=== PATIENT | female | born 1990 | race Caucasian/White ===

== ENCOUNTER → 2016-08-04 | Outpatient (CLI) | payer OTHER ==
[~2016-08-04] MED LIST: ADIPEX37.5 MG PO; BIO-TN500 MCG PO; FIORICET 325 MG1 TAB PO; MAXALT5 MG PO; MIGRAINE MED; MOTRIN800 MG PO; MULTIPLE VITAMI1 CAP PO; NKHM; NORFLEX100 MG PO; NYSTATIN100000 U/M PO; PREDNISONE20 M1 PO; PRISTIQ50 MG PO; TOPAMAX50 MG PO; VIBRAMYCIN100 MG PO; VICODIN ES 7501 TAB PO; ZOFRAN ODT4 MG SL; Zofran4 MG PO
--- NOTE | ~2016-08-04 | PF ---
[place], [place] PULMONARY FUNCTION TEST NAME: ELIAS RODRIGUEZ UNIT #: [id number] ROOM: DOCTOR: GENESIS BOYER MD,ROMAIN BIRTHDATE: [birth year] DOS: 08/04/2016 PULMONARY FUNCTION TEST The testing of the patient on completed 08/04/2016. HISTORY: The patient recorded 25 years old outpatient female, height of 63 inches, weight of 170 pounds without any past history of tobacco use. The patient described a rash on the skin as well as a possibility of myositis. The patient reported symptoms of dyspnea with exertion with rare wheezing. SPIROMETRY: The FVC recorded 3.44 liters as 94% predicted value. The FEV1 was 3.43 liters at 109% predicted value. The FEV1 and the FVC for the patient both noted normal. The ratio of FEV1/FVC was recorded 100%. Partial improvement of the patient was noted in the FVC as 11%, which does ____ the significant improvement criteria of ATS. The lung volumes, thoracic gas volume recorded 90%, residual volume 104% and total lung capacity of 107%. The lung volumes were noted as normal. The lung diffusion recorded as 111% that was normal. The patient's airway resistance and passive conductance were noted normal. IMPRESSION: The patient with essentially noted normal pulmonary function test for this patient's current assessment. ROMAIN HURTADO MD CM:PFREPORT:PULMONARY FUNCTION TEST [id number] ROMAIN BOYER MD
== END | disposition home or self-care (01) ==
LOC: CP 12:41
DX: R06.02 Shortness of breath (principal); R21 Rash and other nonspecific skin eruption; B37.0 Candidal stomatitis

== ENCOUNTER → 2018-01-23 | Outpatient (CLI) | payer OTHER ==
--- NOTE | ~2018-01-23 | EKG ---
[place], [place] ELECTROCARDIOGRAM REPORT NAME: ELIAS RODRIGUEZ UNIT #: [id number] ROOM: DOCTOR: EPIPHANY DRAFT REPORT BIRTHDATE: [birth year] [facility] Test Date: 2018-01-23 Test Time: 16:21:56 Pat Name: ELIAS RODRIGUEZ Department: Room: Gender: F Chief Nuclear Medicine Technologist: Pamela Brooks : 1990 Requested By: MUSA VEGA Order Number: [id number] Reading MD: Henry Martinez MD Measurements Intervals [place] Rate: 124 P: 72 ME: 148 QRS: 40 QRSD: 70 T: 34 QT: 317 QTc: 456 Interpretive Statements Sinus tachycardia LAE, consider biatrial enlargement No previous ECG available for comparison Electronically Signed On 01-25-2018 11:02:46 PDT by Henry Martinez MD CM:EKGRPT:ELECTROCARDIOGRAM REPORT 1621 [id number] MUSA VEGA EPIPHANY DRAFT REPORT MUSA VEGA
== END | disposition home or self-care (01) ==
LOC: CARD 16:09
DX: Z51.81 Encounter for therapeutic drug level monitoring (principal); R00.0 Tachycardia, unspecified; F90.9 Attention-deficit hyperactivity disorder, unspecified type; Z79.899 Other long term (current) drug therapy

== ENCOUNTER → 2020-08-03 | Outpatient (CLI) | payer OTHER ==
[2020-08-03 10:39] LABS: URINE AMPHETAMINES < 1000 (1000ng/ml); URINE BARBITURATES < 200 (200ng/ml); URINE BENZODIAZEPINES < 200 (200ng/ml); URINE CANNABINOIDS (THC) < 50 (50ng/ml); URINE COCAINE < 300 (300ng/ml); URINE METHADONE < 300 (300ng/ml); URINE OPIATES < 300 (300ng/ml)
[2020-08-03 10:48] LABS: URINE PHENCYCLIDINE < 25 (25ng/ml)
== END | disposition home or self-care (01) ==
LOC: LAB 09:41
PROVIDERS: ATTEND Registered Nurse Psychiatric/Mental Health
DX: F90.0 Attention-deficit hyperactivity disorder, predominantly inattentive type (principal)

== ENCOUNTER 2023-10-08 11:19 | Emergency (ER) | payer BC ==
[~2023-10-08] VITALS: Ht 157.4 cm; Wt 65.8 kg
[2023-10-08] MEDS ORDERED: ATOMOXETINE HCL40 MG PO (11:38)
[2023-10-08] MEDS ORDERED: DEXTROAMPH SACC10 M1 PO (11:38)
[2023-10-08] MEDS ORDERED: TOPAMAX50 MG PO (11:39)
[2023-10-08] MEDS ORDERED: MIXED AMPHETAMI30 MG PO (11:41)
[2023-10-08] MEDS ORDERED: MORPHINE Sulfate 2 MG/ML SYR IV ONE ×2 (12:00→14:45)
[2023-10-08] MEDS ORDERED: SODIUM CHLORIDE 0.9% 1,000 ML IV ONE (12:00)
[2023-10-08] MEDS ORDERED: Ondansetron Hydrochloride 4 MG/2 ML VIAL IV ONE ×2 (12:00→14:45)
[2023-10-08] MEDS ORDERED: IOHEXOL 300 MG/ML 100 ML VIAL IV ONE (12:05)
[2023-10-08 12:28] LABS: BASO % 0.2 % (0.0-1.0); EOS % 0.3 % (1.0-4.0); HEMATOCRIT 43.1 % (37.0-47.0); LYMPH % 9.8 % (27.0-41.0); MEAN CELL VOLUME 93.9 fl (81.0-99.0); MEAN CORPUSCULAR HGB 30.1 pg (27.0-31.0); MEAN PLATELET VOLUME 9.4 fl (9.6-12.3); MONO # 0.2 10*3/uL (0.1-1.0); MONO % 2.4 % (3.0-9.0); NEUT # 8.5 10*3/uL (2.3-7.9); PLATELET COUNT AUTOMATED 294 10*3/uL (130-400); RED BLOOD COUNT 4.59 10*6/uL (4.10-5.10); RED CELL DISTRI WIDTH 13.2 % (0-14.5); WHITE BLOOD COUNT 9.7 10*3/uL (4.8-10.8)
[2023-10-08 12:28] LABS: BILIRUBIN Negative (Negative); BLOOD Negative (Negative); CLARITY Turbid (Clear); COLOR Yellow (Yellow); GLUCOSE Trace (Negative); KETONE Negative (Negative); LEUKO ESTERASE Negative (Negative); NITRITE Negative (Negative); PH 7.5 (4.5-8.0); SPECIFIC GRAVITY 1.015 (1.001-1.030); UROBILINOGEN 0.2 E.U./dl (0.0-1.0)
[2023-10-08 12:37] LABS: BACTERIA 1+
[2023-10-08 12:45] LABS: ALKALINE PHOSPHATASE 51 U/L (46-116); BUN 11 mg/dl (9-23); CHLORIDE 109 mmol/L (98-107); POTASSIUM 4.1 mmol/L (3.4-5.1); SGPT/ALT 7 U/L (5-49); TOTAL PROTEIN 7.6 gm/dL (6.0-8.0)
[2023-10-08] MEDS ORDERED: MG-AL HYDROXIDE/SIMETICONE 30 ML UDC PO STA (14:44)
[2023-10-08] MEDS ORDERED: Lidocaine Hydrochloride 15 ML UDC PO STA (14:44)
[2023-10-08] MEDS ORDERED: Dicyclomine Hydrochloride 20 MG/10 ML OSYR PO STA (14:44)
[2023-10-08] MEDS ORDERED: FAMOTIDINE 50 ML IV ONE (14:45)
[2023-10-08] MEDS ORDERED: PEPCID20 MG PO (15:00)
== END 2023-10-08 15:23 | disposition home or self-care (01) ==
LOC: ED 11:19
PROVIDERS: Emergency Medicine
DX: R10.30 Lower abdominal pain, unspecified (principal); F32.A Depression, unspecified; F41.9 Anxiety disorder, unspecified; G43.909 Migraine, unspecified, not intractable, without status migrainosus; Z90.49 Acquired absence of other specified parts of digestive tract; Z98.890 Other specified postprocedural states

== ENCOUNTER 2024-12-19 19:50 | Emergency (ER) | payer BC ==
[~2024-12-19] VITALS: Ht 160 cm; Wt 72.6 kg
[~2024-12-19 19:50] MED LIST changes: +ATOMOXETINE HCL40 MG PO; +DEXTROAMPH SACC10 M1 PO; +MIXED AMPHETAMI30 MG PO; +PEPCID20 MG PO
[2024-12-19 20:26] LABS: BASO # 0.0 10*3/uL (0.0-0.1); BASO % 0.4 % (0.0-1.0); EOS # 0.2 10*3/uL (0.0-0.4); EOS % 1.5 % (1.0-4.0); MEAN CELL VOLUME 93.3 fl (81.0-99.0); MEAN CORPUSCULAR HGB 29.7 pg (27.0-31.0); MEAN PLATELET VOLUME 8.9 fl (9.6-12.3); MONO # 0.7 10*3/uL (0.1-1.0); MONO % 6.7 % (3.0-9.0); NEUT # 6.7 10*3/uL (2.3-7.9); NEUT % 69.3 % (47.0-73.0); NUCLEATED RED BLOOD CELL 0.0 % (0.0-0.0); NUCLEATED RED BLOOD CELL 0.0 10*3/uL (0.0-0.0); PLATELET COUNT AUTOMATED 263 10*3/uL (130-400); RED CELL DISTRI WIDTH 14.2 % (0-14.5)
[2024-12-19 20:31] LABS: BILIRUBIN Negative (Negative); BLOOD Negative (Negative); CLARITY Clear (Clear); COLOR Yellow (Yellow); KETONE Negative (Negative); LEUKO ESTERASE Negative (Negative); NITRITE Negative (Negative); PH 6.5 (4.5-8.0); SPECIFIC GRAVITY 1.020 (1.001-1.030); UROBILINOGEN 0.2 E.U./dl (0.0-1.0)
[2024-12-19 20:37] LABS: BACTERIA 1+
[2024-12-19 20:46] LABS: BUN 17 mg/dl (9-23)
== END 2024-12-19 21:11 | disposition home or self-care (01) ==
LOC: ED 19:50
PROVIDERS: Internal Medicine
DX: O26.891 Other specified pregnancy related conditions, first trimester (principal); E87.1 Hypo-osmolality and hyponatremia; E44.1 Mild protein-calorie malnutrition; D64.9 Anemia, unspecified; Z3A.12 12 weeks gestation of pregnancy; Z79.899 Other long term (current) drug therapy; Z90.49 Acquired absence of other specified parts of digestive tract; Z98.890 Other specified postprocedural states

== ENCOUNTER 2025-02-16 16:17 | Emergency (ER) | payer BC ==
[~2025-02-16] VITALS: Ht 160 cm; Wt 72.6 kg
== END 2025-02-16 16:49 | disposition home or self-care (01) ==
LOC: ED 16:17
DX: O26.891 Other specified pregnancy related conditions, first trimester (principal); S20.152A Superficial foreign body of breast, left breast, initial encounter; F32.A Depression, unspecified; F41.9 Anxiety disorder, unspecified; G43.909 Migraine, unspecified, not intractable, without status migrainosus; W45.8XXA Other foreign body or object entering through skin, initial encounter; Y93.89 Activity, other specified; Y92.89 Other specified places as the place of occurrence of the external cause; Y99.8 Other external cause status